=== PATIENT | male | born 1935 | race Caucasian/White ===

== ENCOUNTER 2017-06-19 10:01 | Outpatient (CLI) | payer MEDICARE, OTHER ==
[2017-06-19 10:15] LABS: BASOPHILS % 0.6 (0.0-1.5); EOSINOPHILS % 5.2 % (0.0-6.8); MEAN CORPUSCULAR HEMOGLOBIN 28.5 pg (28.0-34.0); MEAN CORPUSCULAR VOLUME 85.1 fl (80.0-100.0); MONOCYTES % 6.1 % (0.0-11.0); NEUTROPHILS # 3.6 # k/uL (1.4-7.7)
== END 2017-06-19 11:47 ==
LOC: LAB 10:01
PROVIDERS: ATTEND Internal Medicine Nephrology
DX: N18.3 Chronic kidney disease, stage 3 (moderate) (principal); I10 Essential (primary) hypertension; R60.9 Edema, unspecified; Z68.28 Body mass index [BMI] 28.0-28.9, adult
CPT/HCPCS: 36415; 80069; 85025

== ENCOUNTER 2018-07-05 09:52 | Outpatient (CLI) | payer MEDICARE, OTHER ==
[2018-07-05 10:15] LABS: MONOCYTES % 6.4 % (0.0-11.0)
[2018-07-05 10:16] LABS: BASOPHILS % 0.3 (0.0-1.5); EOSINOPHILS % 5.9 % (0.0-6.8); NEUTROPHILS # 4.2 # k/uL (1.4-7.7)
== END 2018-07-05 09:53 ==
LOC: LAB 09:52
PROVIDERS: ATTEND Internal Medicine Nephrology
DX: I10 Essential (primary) hypertension (principal); N18.3 Chronic kidney disease, stage 3 (moderate)
CPT/HCPCS: 36415; 80069; 85025

== ENCOUNTER 2018-09-28 07:34 | Outpatient (CLI) | payer MEDICARE, OTHER ==
[2018-09-28 07:52] LABS: BASOPHILS % 0.6 (0.0-1.5); EOSINOPHILS % 5.7 % (0.0-6.8); MEAN CORPUSCULAR HEMOGLOBIN 30.2 pg (28.0-34.0); MONOCYTES % 5.4 % (0.0-11.0); NEUTROPHILS # 2.9 # k/uL (1.4-7.7)
[2018-09-28 08:04] LABS: eGFR (Non-African) > 60
[2018-09-28 08:37] LABS: APPEARANCE,URINE CLEAR (CLEAR); COLOR,URINE YELLOW (YELLOW); OCCULT BLOOD,URINE TRACE-INTACT (NEGATIVE)
[2018-09-28 08:38] LABS: UROBILINOGEN URINE 0.2 Eu (0.2-1.0)
== END 2018-09-28 07:35 ==
LOC: LAB 07:34
PROVIDERS: ATTEND Internal Medicine
DX: N18.9 Chronic kidney disease, unspecified (principal); I10 Essential (primary) hypertension
CPT/HCPCS: 36415; 80053; 80061; 81002; 84443; 85025

== ENCOUNTER 2019-02-17 14:08 | Outpatient (CLI) | payer MEDICARE, OTHER ==
--- NOTE | 2019-02-17 16:01 | Diagnostic Imaging Report ---
GRACIA LAY [facility] [address] [address] Report Submission Date: Feb 17, 2019 2:42:58 PM CDT Patient Study Name: ISACC DORMAN Date: Feb 17, 2019 2:10:16 PM CDT Modality Type: DX Gender: M Description: WRIST 3 VIEWS : 33 Institution: [facility] Physician: GRACIA LAY Exam: Right wrist. History: Swelling. PA, lateral and oblique view of the right wrist are submitted. Sclerosis spurring and pseudo cystic formations at the radiocarpal joint is noted. Subluxation at the ulnar carpal joints are noted. Degenerate changes at the 1st carpometacarpal joint are noted. Soft tissue swelling about the wrist is noted. Impression: Severe arthritic changes. Electronically signed on Feb 17, 2019 2:42:58 PM CDT by: Titus ARREOLA
--- NOTE | 2019-02-17 16:04 | Diagnostic Imaging Report ---
GRACIA LAY [facility] [id number] [facility] [address] [id number] Report Submission Date: Feb 17, 2019 2:42:03 PM CDT Patient Study Name: ISACC DORMAN Date: Feb 17, 2019 2:10:09 PM CDT Modality Type: DX Gender: M Description: HAND 3 VIEWS OR MORE : 33 Institution: [facility] Physician: GRACIA LAY Exam: Right hand. History: Swelling. PA, lateral and oblique view of the right hand are submitted. No signs of acute fracture or dislocation is identified. Marked degenerate changes at the radiocarpal joint and ulnar carpal joint is noted. Degenerate changes at the 1st carpometacarpal joint are also noted. Marked degenerate changes at the 2nd and 3rd metacarpophalangeal joints and interphalangeal joints are noted. Marked soft tissue swelling over the hand is noted. Impression: Marked arthritic changes at the wrist and hand. Electronically signed on Feb 17, 2019 2:42:03 PM CDT by: Titus ARREOLA
== END 2019-02-17 14:10 ==
LOC: RAD 14:08
PROVIDERS: ATTEND Family Medicine
DX: Z87.2 Personal history of diseases of the skin and subcutaneous tissue (principal); L99 Other disorders of skin and subcutaneous tissue in diseases classified elsewhere
CPT/HCPCS: 73110; 73130